=== PATIENT | male | born 1995 | race Two or more races ===

== ENCOUNTER → 2023-04-26 13:21 | Outpatient (BNVA) | payer OTHER, SELFPAY | PROVIDERS: Visit Provider Internal Medicine | DX: Z13.89 Encounter for screening for other disorder (principal) | CPT/HCPCS: 99203 ==

== ENCOUNTER 2023-10-17 13:36 | Outpatient (AMB) | payer OTHER, SELFPAY ==
--- NOTE | 2023-10-17 13:47 | MHC.PC.OV ---
Vital Signs 10/17/23 13:49 Height 5 ft 7 in Weight 230 lb 2 oz BMI 36.0 BP 120/62 Blood Pressure Location Lt brachial Position Sitting Pulse 93 Pulse Source Pulse Oximeter Pulse Oximetry (%) 97 Oxygen Delivery Method Room Air Intake Visit Reasons: New patient-req physical Intake Note: Patient is a new patient here to establish care for Asthma, Seasonal Allergic, Anxiety. Transferring care from [facility]. Medical records have not been requested and have not received. Regional Geodetic Advisor Required: No Concrete Curer: Not Required per policy Accompanied by: Self / Same As Patient Allergies Seasonal Allergies Allergy (Intermediate, Verified 10/17/23 14:40) Itchy Eyes Medication List - Last Reconciled 10/17/23 by Shola Whipple MD No Known Home Meds Tobacco use date assessed: 10/17/23 Dental Screening Dental Screen Date: 10/17/23 Did you have a dental visit in the last 12 months?: No Did you have a dental problem in the last 6 months where you did not have access to dental care?: No Was dental information given to patient?: No HPI New patient-req physical HPI Details 28-year-old male presents to the office requesting an annual physical. He would like to have his albuterol medication refilled. [facility] Surgical History History of cystostomy Family History Other Diabetes HTN (hypertension) Social History Housing: Condominium Alcohol intake: never Patient Tobacco Use Status: Never used Tobacco e-Cigarette/Vaping Use: Never Used Second Hand Smoke Exposure: No service: No Current occupational status: employed Current occupation: [employer] Cognitive needs: No Hearing needs: No Vision needs: No Questionnaire PHQ-9 Over the last 2 weeks, how often have you been bothered by any of the following problems? 1. Little interest or pleasure in doing things: not at all 2. Feeling down, depressed, or hopeless: not at all 3. Trouble falling or staying asleep, or sleeping too much: not at all 4. Feeling tired or having little energy: not at all 5. Poor appetite or overeating: not at all 6. Feeling bad about yourself - or that you are a failure or have let yourself or your family down: not at all 7. Trouble concentrating on things, such as reading the newspaper or watching television: not at all 8. Moving or speaking so slowly that other people could have noticed. Or the opposite - being so fidgety or restless that you have been moving around a lot more than usual: not at all 9. Thoughts that you would be better off or of hurting yourself in some way: not at all Total score: 0 Depression Screening Interpretation: Negative Depression Screening Done: Yes Source: Developed by Drs. Sukh Espinosa, Elvira Loera, Kranthi Pena and colleagues, with an educational eusebio from [employer]. Thrive Questionnaire Date Thrive assessed: 10/17/23 I am a: Patient What is your living situation today?: I have a steady place to live Within the past 12 months, did the food you bought not last and you didn't have the money to get more?: Never true Within the past 12 months, did you worry whether your food would run out before you got money to buy more?: Never true Do you have trouble paying for medicines?: No Do you have trouble getting transportation to medical appointments?: No Do you have trouble paying your heating and electricity bill?: No Do you have trouble taking care of your child, family member or friend?: No Do you have trouble with day-to-day activities such as bathing, preparing meals, shopping, managing finances, etc.?: No Are you currently unemployed and looking for a job?: No Are you interested in more education?: No Currently or been in a relationship where the following occur: no concerns reported AUDIT C Alcohol Use Questionnaire (AUDIT-C) 1. How often do you have a drink containing alcohol?: Never Total Score: 0 SHIRA-7 AMB Questionnaire SHIRA-7 Date SHIRA - 7 assessed: 10/17/23 Feeling nervous, anxious, or on edge: 1 = Several days (situational) Not being able to stop or control worryin = Not at all Worrying too much about different things: 0 = Not at all Trouble relaxin = Not at all Being so restless that it is hard to sit still: 0 = Not at all Becoming easily annoyed or irritable: 0 = Not at all Feeling afraid as if something awful might happen: 0 = Not at all Total SHIRA-7 score (0-4 normal; 5-9 mild; 10-14 moderate; 15-21 severe): 1 Source: Developed by Drs. Sukh Espinosa, Elvira Loera, Kranthi Pena and colleagues, with an educational eusebio from [employer]. Physical exam (Primary Care) Vital Signs: Last Vital Signs Pulse 93 10/17/23 13:49 BP 120/62 10/17/23 13:49 Pulse Ox 97 10/17/23 13:49 Oxygen Delivery Method Room Air 10/17/23 13:49 BMI result Body Mass Index 36.0 Tobacco/Smoking Status: Tobacco use Status Tobacco use date assessed 10/17/23 10/17/23 14:03 Patient Tobacco Use Status Never used Tobacco 10/17/23 14:03 e-Cigarette/Vaping Use Never Used 10/17/23 14:03 PHQ-9: PHQ-9 Score PHQ-9: Total score 0 10/17/23 14:29 Depression Screening Interpretation: Negative Thrive Assessment: Date of Thrive Assessment Date Thrive assessed 10/17/23 10/17/23 14:03 Currently or been in a relationship where the following occur: no concerns reported Const General: cooperative and healthy appearing Nutritional Appearance: well nourished Orientation/consciousness: patient oriented x3 Limitations: no limitations HENMT Head: Yes normal to inspection Eyes General: appearance normal, both eyes and all related structures Neck Neck: Yes normal visual inspection Chest Chest palpation & inspection: normal palpation of entire chest wall Resp Effort & Inspection: normal respiratory effort Neuro General: patient oriented x3 Office Procedures Flu Questionnaire Does the patient have a severe egg allergy?: No Does the patient have severe life threatening allergies?: No Does the patient have a fever or illness today?: No Has the patient ever had Guillain-Stella Syndrome?: No Has the patient ever had any past reaction to a flu shot?: No Immunizations flu vacc [id number] 6mos up(PF) 60 mcg(15 mcgx4)/0.5 mL IM syringe Performing Provider: Shola Whipple MD [facility] [place] [facility] Administered by: GENEVA Hood on 10/17/23 14:29 Dose Route Admin Location Dispensed Lot Number Expiration Date NDC [employer] Machine Setup Operator 0.5 mL IM Left Deltoid 0.5 mL [id number] 04/08/24 [id number] [employer]™ VIS Given Date VIS Provided VIS Publication Date 10/17/23 Single Vaccine 21 Eligibility Eligibility Date Funding Source Not [facility] Eligible 10/17/23 Private Assessment and Plan Assessment & Plan (1) Annual physical exam: Code(s): Z00.00 - Encounter for general adult medical examination without abnormal findings Plan Blood work has been ordered will call patient with results. Orders: Orders Influenza [id number] Immunization Today Z23 - Encounter for immunization Coding Level of Care Code New Pt Prev Care 18-39yr([id number] Diagnoses Annual physical exam Z00.00
[2023-10-17 13:49] VITALS: BP 120/62; PULSE 93; O2SAT 97; BMI 36.0
== END 2023-10-17 14:32 | disposition home or self-care (01) ==
PROVIDERS: PCP Internal Medicine; Visit Provider Internal Medicine
DX: Z00.00 Encounter for general adult medical examination without abnormal findings (principal); Z23 Encounter for immunization
CPT/HCPCS: 90471; 90686; 99385